=== PATIENT | female | born 1995 ===

== ENCOUNTER 2022-03-17 03:07 | Emergency (ER) | payer SELFPAY ==
[2022-03-17 03:45] VITALS: BP 127/87
== END 2022-03-17 19:01 | disposition left against medical advice (07) ==
LOC: ED 03:07
DX: S01.112A Laceration without foreign body of left eyelid and periocular area, initial encounter (principal); Z53.21 Procedure and treatment not carried out due to patient leaving prior to being seen by health care provider; X58.XXXA Exposure to other specified factors, initial encounter; Y93.89 Activity, other specified; Y92.89 Other specified places as the place of occurrence of the external cause; Y99.8 Other external cause status